=== PATIENT | male | born 1955 | race Caucasian/White ===

== ENCOUNTER 2018-01-28 16:01 | Outpatient (CLI) | payer OTHER ==
[2018-01-28 16:41] LABS: eGFR (Non-African) > 60
== END 2018-01-28 16:02 ==
LOC: LAB 16:01
PROVIDERS: ATTEND Family Medicine
DX: I10 Essential (primary) hypertension (principal)
CPT/HCPCS: 36415; 80048

== ENCOUNTER 2019-01-09 14:55 | Outpatient (CLI) | payer OTHER | END 2019-01-09 14:57 | LOC: LAB 14:55 | PROVIDERS: ATTEND Family Medicine | DX: Z00.00 Encounter for general adult medical examination without abnormal findings (principal); Z13.220 Encounter for screening for lipoid disorders; Z79.899 Other long term (current) drug therapy | CPT/HCPCS: 36415; 80053; 80061 ==